=== PATIENT | female | born 1955 | race Caucasian/White ===

== ENCOUNTER 2016-10-07 11:58 | Emergency (ER) | payer SELFPAY ==
[~2016-10-07] VITALS: Ht 165.1 cm; Wt 86.2 kg
--- NOTE | 2016-10-07 12:24 | NUR ---
BB SELF CC LEFT SHOULDER AND NECK PAIN S/P SLIP AND FALL X 4 DAYS AGO. AWAITING MD ORDER
[2016-10-07] MEDS ORDERED: HYDROCODONE/APAP 5/325MG 1 EACH TABLET PO ONE (13:30)
[2016-10-07] MEDS ORDERED: ONDANSETRON 4 MG TAB.RAPDIS SL ONE (13:30)
[2016-10-07] MEDS ORDERED: ONDANSETRON 4 MG TAB.RAPDIS ONE (13:38)
[2016-10-07] MEDS ORDERED: HYDROCODONE/APAP 5/325MG 1 EACH TABLET ONE (13:38)
--- NOTE | 2016-10-07 14:28 | NUR ---
Patient discharged to home in stable condition. Written and verbal after care instructions given. Patient verbalizes understanding of instruction.
[2016-10-07 14:29] VITALS: BP 112/72
== END 2016-10-07 14:45 | disposition home or self-care (01) ==
LOC: ER 12:01
DX: S16.1XXA Strain of muscle, fascia and tendon at neck level, initial encounter (principal); S40.012A Contusion of left shoulder, initial encounter; Z88.0 Allergy status to penicillin; Z88.8 Allergy status to other drugs, medicaments and biological substances; Z96.612 Presence of left artificial shoulder joint; W01.0XXA Fall on same level from slipping, tripping and stumbling without subsequent striking against object, initial encounter; Y92.89 Other specified places as the place of occurrence of the external cause; Y93.89 Activity, other specified; Y99.8 Other external cause status
CPT/HCPCS: 72050; 73030; 99284; A4606; Z7610